=== PATIENT | female | born 1990 | race Caucasian/White ===

== ENCOUNTER 2018-09-08 15:26 | Emergency (ER) | payer OTHER ==
[~2018-09-08] VITALS: Ht 165.1 cm; Wt 87.0 kg
[2018-09-08] MEDS ORDERED: rabies immune globulin/PF 150 unit/ml inj IMVAC STA (15:46)
[2018-09-08] MEDS ORDERED: rabies vaccine (PCEC)/PF 2.5 unit kit IMVAC ONE (15:50)
[2018-09-08] MEDS ORDERED: AMOX-422 PO (15:58)
[2018-09-08 17:06] VITALS: BP 153/92
== END 2018-09-08 17:08 | disposition home or self-care (01) ==
LOC: ER 15:27
DX: S51.852A Open bite of left forearm, initial encounter (principal); S51.832A Puncture wound without foreign body of left forearm, initial encounter; F12.90 Cannabis use, unspecified, uncomplicated; W55.01XA Bitten by cat, initial encounter; Y93.89 Activity, other specified; Y92.89 Other specified places as the place of occurrence of the external cause; Y99.9 Unspecified external cause status
CPT/HCPCS: 90375; 90471; 90675; 96372; 99283